=== PATIENT | female | born 1985 | race American Indian/Alaskan Native ===

== ENCOUNTER 2020-11-06 07:31 | Outpatient (CLI) | payer OTHER | END 2020-11-06 09:18 | disposition home or self-care (01) | LOC: NST 07:31 | PROVIDERS: ATTEND Obstetrics & Gynecology | DX: Z34.03 Encounter for supervision of normal first pregnancy, third trimester (principal) ==

== ENCOUNTER 2020-11-13 07:31 | Outpatient (CLI) | payer OTHER | END 2020-11-13 12:13 | disposition home or self-care (01) | LOC: NST 07:31 | PROVIDERS: ATTEND Obstetrics & Gynecology | DX: Z34.83 Encounter for supervision of other normal pregnancy, third trimester (principal) ==

== ENCOUNTER 2020-11-21 10:46 | Inpatient (IN) | payer OTHER ==
[~2020-11-21] VITALS: Ht 157.5 cm; Wt 62.6 kg
[2020-11-22] MEDS ORDERED: ATABEX DHA 200200 MG PO (08:06)
[2020-11-23] MEDS ORDERED: DERMOPLAST PAIN78 GM TOP (10:13)
[2020-11-23] MEDS ORDERED: DOCUSATE SODIU100 MG PO (10:13)
[2020-11-24] MEDS ORDERED: AMOX1TAB5 PO (14:48)
== END 2020-11-24 16:38 | disposition home or self-care (01) | DRG 807 ==
LOC: LDR 10:46 → OB/GYN 10:46
PROVIDERS: ADMIT Obstetrics & Gynecology; ATTEND Obstetrics & Gynecology
PROC: 10E0XZZ Delivery of Products of Conception, External Approach (ICD-10-PCS; principal; 2020-11-21)
PROC: 0W8NXZZ Division of Female Perineum, External Approach (ICD-10-PCS; 2020-11-21)
PROC: 10907ZC Drainage of Amniotic Fluid, Therapeutic from Products of Conception, Via Natural or Artificial Opening (ICD-10-PCS; 2020-11-21)
PROC: 3E0P7VZ Introduction of Hormone into Female Reproductive, Via Natural or Artificial Opening (ICD-10-PCS; 2020-11-21)
PROC: 4A1HXFZ Monitoring of Products of Conception, Cardiac Rhythm, External Approach (ICD-10-PCS; 2020-11-21)
PROC: BY4FZZZ Ultrasonography of Third Trimester, Single Fetus (ICD-10-PCS; 2020-11-21)
DX: O36.4XX0 Maternal care for intrauterine death, not applicable or unspecified (principal); Z37.1 Single stillbirth; Z3A.39 39 weeks gestation of pregnancy; F43.21 Adjustment disorder with depressed mood; Z63.4 Disappearance and death of family member

== ENCOUNTER 2022-07-17 18:19 | Outpatient (CLI) | payer OTHER ==
[~2022-07-17 18:19] MED LIST: AMOX1TAB5 PO; ATABEX DHA 200200 MG PO; DERMOPLAST PAIN78 GM TOP; DOCUSATE SODIU100 MG PO
[2022-07-17] MEDS ORDERED: LOVENOX40 MG/0.4 SUBCUTANEO (18:21)
[2022-07-17] MEDS ORDERED: UNISOM25 MG PO (18:22)
[2022-07-17] MEDS ORDERED: PRENATAL CAPLE1 EAC1 PO (18:22)
== END 2022-07-17 18:54 | disposition home or self-care (01) ==
LOC: OBS/DEL 18:19
PROVIDERS: ATTEND Obstetrics & Gynecology Maternal & Fetal Medicine
DX: O36.8120 Decreased fetal movements, second trimester, not applicable or unspecified (principal); Z3A.24 24 weeks gestation of pregnancy

== ENCOUNTER 2022-09-03 08:12 | Outpatient (CLI) | payer OTHER ==
[~2022-09-03 08:12] MED LIST changes: +LOVENOX40 MG/0.4 SUBCUTANEO; +PRENATAL CAPLE1 EAC1 PO; +UNISOM25 MG PO
== END 2022-09-03 09:09 | disposition home or self-care (01) ==
LOC: NST 08:12
PROVIDERS: ATTEND Obstetrics & Gynecology Maternal & Fetal Medicine
DX: Z34.83 Encounter for supervision of other normal pregnancy, third trimester (principal)

== ENCOUNTER 2022-09-20 09:23 | Outpatient (CLI) | payer OTHER | END 2022-09-20 10:30 | disposition home or self-care (01) | LOC: NST 09:23 | PROVIDERS: ATTEND Obstetrics & Gynecology Gynecology | DX: Z34.83 Encounter for supervision of other normal pregnancy, third trimester (principal) ==

== ENCOUNTER 2022-10-04 07:52 | Outpatient (CLI) | payer OTHER | END 2022-10-04 08:34 | disposition home or self-care (01) | LOC: NST 07:52 | PROVIDERS: ATTEND Obstetrics & Gynecology Maternal & Fetal Medicine | DX: Z34.83 Encounter for supervision of other normal pregnancy, third trimester (principal) ==

== ENCOUNTER 2022-10-10 07:52 | Outpatient (CLI) | payer OTHER | END 2022-10-10 08:57 | disposition home or self-care (01) | LOC: NST 07:52 | PROVIDERS: ATTEND Obstetrics & Gynecology | DX: Z34.83 Encounter for supervision of other normal pregnancy, third trimester (principal) ==

== ENCOUNTER 2022-10-10 12:26 | Inpatient (IN) | payer OTHER ==
[~2022-10-10] VITALS: Ht 157.5 cm; Wt 77.6 kg
== END 2022-10-25 16:01 | disposition home or self-care (01) | DRG 807 ==
LOC: LDR 10-18 12:25 → OB/GYN 10-23 13:13
PROVIDERS: ADMIT Obstetrics & Gynecology; ATTEND Obstetrics & Gynecology
PROC: 4A1HXCZ Monitoring of Products of Conception, Cardiac Rate, External Approach (ICD-10-PCS; 2022-10-22)
PROC: 10E0XZZ Delivery of Products of Conception, External Approach (ICD-10-PCS; principal; 2022-10-23)
PROC: 0HQ9XZZ Repair Perineum Skin, External Approach (ICD-10-PCS; 2022-10-23)
DX: O70.0 First degree perineal laceration during delivery (principal); Z37.0 Single live birth; Z3A.37 37 weeks gestation of pregnancy; Z20.822 Contact with and (suspected) exposure to COVID-19

== ENCOUNTER 2022-10-15 12:53 | Outpatient (CLI) | payer OTHER | END 2022-10-15 13:37 | disposition home or self-care (01) | LOC: NST 12:53 | PROVIDERS: ATTEND Obstetrics & Gynecology | DX: Z34.83 Encounter for supervision of other normal pregnancy, third trimester (principal) ==

== ENCOUNTER → 2022-10-22 | Outpatient (CLI) | payer OTHER | END | disposition home or self-care (01) | LOC: NST 14:42 | PROVIDERS: ATTEND Obstetrics & Gynecology | DX: Z34.83 Encounter for supervision of other normal pregnancy, third trimester (principal) ==